=== PATIENT | female | born 1985 | race Two or more races ===

== ENCOUNTER 2021-11-28 16:44 | Emergency (ER) | payer MEDICAID ==
[~2021-11-28] VITALS: Ht 152.4 cm; Wt 80.7 kg
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
--- NOTE | 2021-11-28 17:00 | NUR ---
TUCKER OF PELVIC DONE AT BEDSIDE
[2021-11-28 17:52] LABS: BASOPHILS % (AUTO) 0.1 % (0.0-2.0); EOSINOPHILS % (AUTO) 0.5 % (0.0-6.0); HEMATOCRIT 36 % (33-45); HEMOGLOBIN 11.8 g/dL (11.5-14.8); LYMPHOCYTES # (AUTO) 1.8 K/uL (0.8-4.8); LYMPHOCYTES % (AUTO) 24.9 % (20.0-44.0); MEAN CORPUSCULAR HGB CONC 33 g/dl (31.0-36.0); MEAN CORPUSCULAR VOLUME 89 fL (82-100); MONOCYTES # (AUTO) 0.4 K/uL (0.1-1.30); MONOCYTES % (AUTO) 4.9 % (2.0-12.0); NEUTROPHILS % (AUTO) 69.6 % (43.0-81.0); PLATELET COUNT (AUTO) 288 K/uL (150-450); RED BLOOD CELL COUNT(AUTO) 4.06 MIL/uL (4.0-5.2); WHITE BLOOD COUNT (AUTO) 7.2 K/uL (4.3-11.0)
[2021-11-28 18:07] LABS: CALCIUM, SERUM 8.8 mg/dL (8.5-10.1); CARBON DIOXIDE 29 mmol/L (21-32); CHLORIDE 104 mmol/L (98-107); CREATININE 0.8 mg/dL (0.6-1.3); GLUCOSE 89 mg/dL (74-106); POTASSIUM 3.2 mmol/L (3.5-5.1); SODIUM SERUM 138 mmol/L (136-145); UREA NITROGEN, BLOOD 9 mg/dL (7-18)
[2021-11-28 18:13] LABS: ACETAMINOPHEN 12 ug/ml (10-30); ALANINE AMINOTRANSFERASE 23 U/L (12-78); ALBUMIN 3.6 g/dL (3.4-5.0); ALCOHOL, BLOOD < 3 mg/dL (0-0); ALKALINE PHOSPHATASE 90 U/L (46-116); ASPARTATE AMINOTRANSFERASE 16 U/L (15-37); BILIRUBIN,DIRECT 0.1 mg/dL (0.0-0.2); BILIRUBIN,TOTAL 0.3 mg/dL (0.2-1.0); TOTAL PROTEIN, SERUM 7.6 g/dL (6.4-8.2)
--- NOTE | 2021-11-28 18:34 | NUR ---
called posion control and spoke to que. I was notified of pt status recomendations: evaluate for acidosis or acute kidney injury hyrdate pt supportive care
[2021-11-28 19:00] LABS: BILIRUBIN,URINE NEGATIVE (NEGATIVE); COLOR,URINE DARK YELLOW (YELLOW); LEUKOCYTE ESTERASE ,URINE TRACE (NEGATIVE); NITRITE, URINE NEGATIVE (NEGATIVE); PH,URINE 6.5 (5.0-8.0); PROTEIN,URINE NEGATIVE (NEGATIVE); UGLUCOSE NEGATIVE (NEGATIVE); UROBILINOGEN,URINE 0.2 EU/dL (0.2)
[2021-11-28 20:03] LABS: BACTERIA,URINE Many /HPF (None Seen); SQUAMOUS EPITHELIAL CELL,UR Many /HPF (None Seen)
--- NOTE | 2021-11-28 21:26 | NUR ---
COVID SWAB SENT TO LAB
--- NOTE | 2021-11-28 22:51 | NUR ---
RECEIVED CALL FROM POISON CONTROL "". LAB RESULTS RELAYED TO HER. SHE ORDERED TO REPEAT TYLENOL LEVEL FOR PATIENT AT 23OOH. IF LEVEL IS ABOVE 89, PATIENT SHOULD BE TREATED FOR ACIDOSIS. ORDERS TO BE CARRIED OUT.
--- NOTE | 2021-11-28 22:55 | NUR ---
ART FITTER TYPE BAR AND SEGMENT PAGED.
--- NOTE | 2021-11-28 23:00 | NUR ---
REPEAT ACETAMENOPHEN LEVEL DONE BY [facility] [employer] TECHNICIAN
--- NOTE | 2021-11-28 23:09 | NUR ---
ART FROM CRISIS TEAM AT BED SIDE
[2021-11-29 00:10] VITALS: BP 137/70
--- NOTE | 2021-11-29 00:10 | NUR ---
Patient discharged to home in stable condition. Written and verbal after care instructions given. Patient verbalizes understanding of instruction.
== END 2021-11-29 00:23 | disposition home or self-care (01) ==
LOC: ER 16:47
DX: O9A.23 Injury, poisoning and certain other consequences of external causes complicating the puerperium (principal); T39.312A Poisoning by propionic acid derivatives, intentional self-harm, initial encounter; T39.1X2A Poisoning by 4-Aminophenol derivatives, intentional self-harm, initial encounter; Y92.019 Unspecified place in single-family (private) house as the place of occurrence of the external cause; Z91.51 Personal history of suicidal behavior; R03.0 Elevated blood-pressure reading, without diagnosis of hypertension; Z20.822 Contact with and (suspected) exposure to COVID-19
CPT/HCPCS: 36415; 76856; 80048; 80076; 80143 ×2; 80307; 80320; 81001; 84703; 85025; 87077; 87086; 87186; 87426; 99285; C9803; G0480